=== PATIENT | male | born 1940 | race Caucasian/White ===

== ENCOUNTER → 2021-11-26 | Outpatient (CLI) | payer MEDICARE, OTHER ==
--- NOTE | 2021-11-26 17:03 | CT ---
EXAMINATION TYPE: CT angio abdomen pelvis DATE OF EXAM: 11/26/2021 COMPARISON: NONE HISTORY: 81-year-old male I77.9, Mesenteric Ischemia, history of stents. History of bowel resection. TECHNIQUE: Contiguous axial scanning of the abdomen and pelvis before and after administration of 100 ml Isovue-370 IV contrast. Coronal and sagittal MIP reconstructions performed. 3-D reconstructions generated on a dedicated workstation. The patient was premedicated for IV contrast. CT DLP: 1383 mGycm Automated exposure control for dose reduction was used. FINDINGS: Heart is borderline enlarged. RCA coronary artery calcifications are present. No pericardial effusion . Patchy reticular posterior and basilar opacities in the lungs. Left-sided fat-containing Bochdalek hernia. There is a large hiatal hernia involving most of the stomach in the lower chest. Some nonobstructed s mall bowel loops also traverse into the hernia sac and are located in the left lower chest. Suspected 6.0 cm diverticulum of the second portion of the duodenum. Redundant first and second porti ons of the duodenum. Noncontrast and early arterial phase imaging of the liver, adrenal glands, kidneys, spleen, and pancr eas show no gross abnormality. Gallbladder is surgically absent. No dilated small bowel, free fluid, or free air. No mesenteric or retroperitoneal lymphadenopathy. Moderate atherosclerotic calcifications throughout the abdominal aorta. 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 A stent is present at the origin of the SMA. Thin axial and sagittal cuts suggest severe stenosis wit hin the stent. Stent at the proximal right renal artery. Moderate atherosclerotic narrowing suggested at the ostia. Additional mild to moderate atherosclerotic narrowing at the origin of the left renal artery. Severe stenosis at the origin of the ERIK. No evidence for aneurysm. High riding cecum. Mild overall stool burden. Left-sided colonic diverticulosis, greatest in the sigm oid colon. No pericolonic inflammatory change. Mildly redundant sigmoid colon. Bladder urine distended. Prostate gland not enlarged. Scattered pelvic phleboliths and vascular calci fications. No abnormal fluid collection in the pelvis or pelvic lymphadenopathy. Prominent air and stool distention of the rectum up to 8.9 cm wide. No abnormal wall thickening is se en. Bones: Osteopenia. Couple sclerotic foci within the iliac bones could represent bone islands. Degener ative change of the right SI joint. Severe hypertrophic facet arthropathy mid to lower lumbar spine. Grade 1 anterolisthesis L5-S1. Minimal superior endplate deformity of L1 is age indeterminate, suspect chronic given the lack of any surrounding soft tissue swelling. IMPRESSION: 1. PREVIOUS STENTING AT THE SMA ORIGIN AND PROXIMAL TO MID RIGHT RENAL ARTERY. THERE APPEARS TO BE SE DARIO STENOSIS ALONG THE SMA STENT AND MODERATE STENOSIS RIGHT RENAL ARTERY. 2. ADDITIONAL SEVERE FOCAL STENOSIS AT THE ORIGIN OF THE CELIAC AXIS AND ALSO AT THE ORIGIN OF THE IM A. 3. MILD TO MODERATE ATHEROSCLEROTIC NARROWING AT THE ORIGIN OF THE LEFT RENAL ARTERY. 4. LARGE HIATAL HERNIA INVOLVING MOST OF THE STOMACH IN THE LOWER CHEST. SOME NONOBSTRUCTED SMALL BOW EL LOOPS ARE ALSO LOCATED IN THE HERNIA SAC. 5. LEFT-SIDED COLONIC DIVERTICULOSIS, GREATEST IN THE SIGMOID COLON. NO FINDINGS OF ACUTE DIVERTICULI TIS. 6. A COUPLE SCLEROTIC FOCI WITHIN THE ILIAC BONES, PROBABLY BONE ISLANDS. CORRELATE WITH PSA VALUES.
== END | disposition home or self-care (01) ==
LOC: RADCTMAIN 10:57
PROVIDERS: ATTEND Surgery
DX: I70.1 Atherosclerosis of renal artery (principal); K55.1 Chronic vascular disorders of intestine; I77.4 Celiac artery compression syndrome; K57.30 Diverticulosis of large intestine without perforation or abscess without bleeding; K44.9 Diaphragmatic hernia without obstruction or gangrene
CPT/HCPCS: 74174; 82565; 84520

== ENCOUNTER 2025-01-25 10:22 | Emergency (ER) | payer MEDICARE, OTHER ==
--- NOTE | 2025-01-25 11:14 | ED ---
General Adult HPI - General Chief complaint: Fall Stated complaint: fall Time Seen by Provider: 01/25/25 10:39 Source: patient, family, RN notes reviewed Mode of arrival: wheelchair Limitations: no limitations - History of Present Illness Initial comments: 85-year-old male presents to the emergency department for evaluation of fall with low back and buttock pain. Patient states that he fell on . He states that he went to hold onto the railing of the deck when he missed the railing causing him to fall backwards onto his buttocks. He does not believe that he hit his head. He is on Plavix. Patient reports that over the past 4 to 5 days he has had black stools. He states that he has had 1 daily. He also notes that he is extremely weak. He states that he is unable to take 2-3 steps because he feels so weak. He does admit to significant shortness of breath. Denies any recent fever. He does not report having any of the symptoms prior to the fall. - Related Data Home Medications Medication Instructions Recorded Confirmed Atorvastatin [Lipitor] 40 mg PO DAILY 01/25/25 01/25/25 Cholecalciferol (Vitamin D3) 50 mcg PO DAILY 01/25/25 01/25/25 [Vitamin D3 (50 Mcg = 2000 Iu)] Clopidogrel [Plavix] 75 mg PO DAILY 01/25/25 01/25/25 Cyanocobalamin (Vitamin B-12) 1,000 mcg PO DAILY 01/25/25 01/25/25 [Vitamin B-12] Escitalopram [Lexapro] 10 mg PO HS 01/25/25 01/25/25 Ferrous Sulfate [Feosol] 325 mg PO DAILY 01/25/25 01/25/25 Folic Acid 1 mg PO DAILY 01/25/25 01/25/25 Levothyroxine Sodium [Synthroid] 75 mcg PO DAILY 01/25/25 01/25/25 Metoprolol Tartrate [Lopressor] 12.5 mg PO BID 01/25/25 01/25/25 NIFEdipine XL [Procardia Xl] 30 mg PO DAILY 01/25/25 01/25/25 Pantoprazole [Protonix] 40 mg PO DAILY 01/25/25 01/25/25 Pramipexole [Mirapex] 0.5 mg PO BID 01/25/25 01/25/25 Warfarin Sodium 4 mg PO HS 01/25/25 01/25/25 modafiniL [Provigil] 200 mg PO DAILY 01/25/25 01/25/25 Allergies Allergy/AdvReac Type Severity Reaction Status Date / Time iodine Allergy Rash/Hives Verified 01/25/25 13:31 Review of Systems ROS Statement: Those systems with pertinent positive or pertinent negative responses have been documented in the HPI. ROS Other: All systems not noted in ROS Statement are negative. Past Medical History Past Medical History: Heart Failure Past Surgical History: Heart Catheterization With Stent Smoking Status: Never smoker Past Alcohol Use History: None Reported Past Drug Use History: None Reported General Exam Limitations: no limitations General appearance: alert, in no apparent distress, other (pallorous) Head exam: Present: atraumatic, normocephalic, normal inspection Eye exam: Present: normal appearance, PERRL, EOMI, other (Subconjunctival pallor). Absent: scleral icterus, conjunctival injection, periorbital swelling ENT exam: Present: mucous membranes dry Neck exam: Present: normal inspection, full ROM. Absent: tenderness, men ingismus, lymphadenopathy Respiratory exam: Present: normal lung sounds bilaterally. Absent: respiratory distress, wheezes, rales, rhonchi, stridor Cardiovascular Exam: Present: regular rate, normal rhythm, normal heart sounds. Absent: systolic murmur, diastolic murmur, rubs, gallop, clicks GI/Abdominal exam: Present: soft, normal bowel sounds. Absent: distended, tenderness, guarding, rebound, rigid Rectal exam: Present: heme (+) stool, black stool Extremities exam: Present: normal inspection, full ROM, normal capillary refill. Absent: tenderness, pedal edema, joint swelling, calf tenderness Neurological exam: Present: alert, oriented X3 Psychiatric exam: Present: normal affect, normal mood Skin exam: Present: dry, intact, pallor Course Vital Signs 01/25/25 01/25/25 01/25/25 10:28 13:17 14:07 Temperature 97.3 F L 97.5 F L Pulse Rate 64 96 84 Respiratory 18 22 20 Rate Blood Pressure 124/71 130/55 123/55 O2 Sat by Pulse 95 100 Oximetry 01/25/25 14:18 Temperature 97.5 F L Pulse Rate 87 Respiratory 20 Rate Blood Pressure 135/58 O2 Sat by Pulse 100 Oximetry Medical Decision Making - Medical Decision Making Was pt. sent in by a medical professional or institution (GÉNESIS Patel, CHIEF PHYSICAL THERAPIST, urgent care, hospital, or longterm...) When possible be specific @ -No Did you speak to anyone other than the patient for history (EMS, parent, family, police, friend...)? What history was obtained from this source @ -Patient's daughter and son provided some history of this patient Did you review nursing and triage notes (agree or disagree)? Why? @ -I reviewed and agree with nursing and triage notes Were old charts reviewed (outside hosp., previous admission, EMS record, old EKG, old radiological studies, urgent care reports/EKG's, longterm records)? Report findings @ -No old charts were reviewed Differential Diagnosis (chest pain, altered mental status, abdominal pain women, abdominal pain men, vaginal bleeding, weakness, fever, dyspnea, syncope, headache, dizziness, GI bleed, back pain, seizure, CVA, palpatations, mental health, musculoskeletal)? @ -Differential Weakness: Hypoglycemia, shock, sepsis, hyponatremia, anemia, infection, OH, ETOH, adverse medicine reaction, overdose, stroke, this is not meant to be an all-inclusive list. EKG interpreted by me (3pts min.). @ -EKG [id number] shows sinus rhythm rate 61, SD 189, QRS 101, QTQTc [id number] X-rays interpreted by me (1pt min.). @ -None done CT interpreted by me (1pt min.). @ -CT of the brain and C-spine shows CT angio of the chest and abdomen reveals U/S interpreted by me (1pt. min.). @ -None done What testing was considered but not performed or refused? (CT, X-rays, U/S, labs)? Why? @ -None What meds were considered but not given or refused? Why? @ -None Did you discuss the management of the patient with other professionals (professionals i.e. GÉNESIS Patel, CHIEF PHYSICAL THERAPIST, lab, RT, psych nurse, oncology social work, pottery machine operator, teacher, financial services officer, vocational case manager)? Give summary @ -Management discussed with Dr. Montes Case discussed with [facility] who is accepting of the transfer Was smoking cessation discussed for >3mins.? @ -No Was critical care preformed (if so, how long)? @ -Yes 37 minutes Were there social determinants of health that impacted care today? How? (Homelessness, low income, unemployed, alcoholism, drug addiction, trans portation, low edu. Level, literacy, decrease access to med. care, care home, rehab)? @ -No Was there de-escalation of care discussed even if they declined (Discuss DNR or withdrawal of care, Hospice)? DNR status @ -No What co-morbidities impacted this encounter? (DM, HTN, Smoking, COPD, CAD, Cancer, CVA, ARF, Chemo, Hep., AIDS, mental health diagnosis, sleep apnea, morbid obesity)? @ -None Was patient admitted / discharged? Hospital course, mention meds given and route, prescriptions, significant lab abnormalities, going to OR and other pertinent info. @ -Transfer. Patient presented the emergency department for evaluation of fall with low back pain. Vital signs are stable. Patient reports that he has noted some black stools at home. He notes that he has had about 1 black stool daily for the past 4 to 5 days. He thought that this may be related to the fall. He states that since then he has felt extremely weak. On my examination the patient has ecchymosis to the posterior right leg. The patient has dark stool. Hemoccult was performed which was positive. Laboratory studies were performed. He has a hemoglobin of 5.1, hematocrit 15.5, MCV 100.2. Coagulation studies are pending. CMP shows BUN of 43, creatinine of 1.75. Hemoccult positive. The patient was administered premedication for CT scan.This included Solu-Medrol, Pepcid, Benadryl. He also received 80 mg of Protonix, 1 g of Rocephin for empiric treatment of GI bleed. Blood transfusion was ordered. Patient received a total of 1 L of normal saline. Coagulation studies resulted following this which showed an INR greater than 10. There was an remembrance that the patient recently started Coumadin. He was administered Balfaxar and vitamin K. Dr. Moreno at [facility] Was accepting of the transfer. Blood hanging at the time of transfer. Case was discussed with Dr. Valencia Undiagnosed new problem with uncertain prognosis? @ -GI bleed Drug Therapy requiring intensive monitoring for toxicity (Heparin, Nitro, Insulin, Cardizem)? @ -No Were any procedures done? @ -No Diagnosis/symptom? @ -GI bleed, anemia Acute, or Chronic, or Acute on Chronic? @ -Acute Uncomplicated (without systemic symptoms) or Complicated (systemic symptoms)? @ -Complicated Side effects of treatment? @ -Yes Coumadin Exacerbation, Progression, or Severe Exacerbation? @ -No Poses a threat to life or bodily function? How? (Chest pain, USA, OH, pneumonia, PE, COPD, DKA, ARF, appy, cholecystitis, CVA, Diverticulitis, Homicidal, Suicidal, threat to staff... and all critical care pts) @ -Yes severe - Lab Data Result diagrams: 01/25/25 11:36 01/25/25 11:36 Lab Results 01/25/25 01/25/25 01/25/25 Range/Units 11:34 11:36 11:36 WBC 11.6 H (3.8-10.6) k/uL RBC 1.55 L (4.30-5.90) m/uL Hgb 5.1 L* (13.0-17.5) gm/dL Hct 15.5 L* (39.0-53.0) % MCV 100.2 H (80.0-100.0) fL MCH 32.6 (25.0-35.0) pg MCHC 32.5 (31.0-37.0) g/dL RDW 18.3 H (11.5-15.5) % Plt Count 252 (150-450) k/uL MPV 8.0 Neutrophils % (Manual) 83 % Lymphocytes % (Manual) 9 % Monocytes % (Manual) 4 % Eosinophils % (Manual) 2 % Metamyelocytes % 2 % Myelocytes % 2 % Neutrophils # (Manual) 9.63 H (1.3-7.7) k/uL Lymphocytes # (Manual) 1.04 (1.0-4.8) k/uL Monocytes # (Manual) 0.46 (0-1.0) k/uL Eosinophils # (Manual) 0.23 (0-0.7) k/uL Metamyelocytes # (Man) 0.23 H (0) k/uL Myelocytes # (Manual) 0.23 H (0) k/uL Nucleated RBCs 1 H (0-0) /100 WBC Manual Slide Review Performed Hypochromasia Moderate Poikilocytosis Slight Anisocytosis Slight Macrocytosis Slight PT (10.0-12.5) sec INR (<1.2) APTT (22.0-30.0) sec Sodium 139 (137-145) mmol/L Potassium 4.1 (3.5-5.1) mmol/L Chloride 110 H (98-107) mmol/L Carbon Dioxide 21 L (22-30) mmol/L Anion Gap 8 mmol/L BUN 43 H (9-20) mg/dL Creatinine 1.75 H (0.66-1.25) mg/dL Est GFR (CKD-EPI)AfAm 41 (>60 ml/min/1.73 sqM) Est GFR (CKD-EPI)NonAf 35 (>60 ml/min/1.73 sqM) Glucose 123 H (74-99) mg/dL Plasma Lactic Acid Isai (0.7-2.0) mmol/L Calcium 8.5 (8.4-10.2) mg/dL Total Bilirubin 2.5 H (0.2-1.3) mg/dL AST 54 (17-59) U/L ALT 22 (4-49) U/L Alkaline Phosphatase 89 (38-126) U/L Total Protein 6.0 L (6.3-8.2) g/dL Albumin 3.3 L (3.5-5.0) g/dL Stool Occult Blood (Negative) Blood Type Blood Type Confirm O Negative Blood Type Recheck Bld Type Recheck Status Antibody Screen Crossmatch Spec Expiration Date 01/25/25 01/25/25 01/25/25 Range/Units 11:36 11:36 12:28 WBC (3.8-10.6) k/uL RBC (4.30-5.90) m/uL Hgb (13.0-17.5) gm/dL Hct (39.0-53.0) % MCV (80.0-100.0) fL MCH (25.0-35.0) pg MCHC (31.0-37.0) g/dL RDW (11.5-15.5) % Plt Count (150-450) k/uL MPV Neutrophils % (Manual) % Lymphocytes % (Manual) % Monocytes % (Manual) % Eosinophils % (Manual) % Metamyelocytes % % Myelocytes % % Neutrophils # (Manual) (1.3-7.7) k/uL Lymphocytes # (Manual) (1.0-4.8) k/uL Monocytes # (Manual) (0-1.0) k/uL Eosinophils # (Manual) (0-0.7) k/uL Metamyelocytes # (Man) (0) k/uL Myelocytes # (Manual) (0) k/uL Nucleated RBCs (0-0) /100 WBC Manual Slide Review Hypochromasia Poikilocytosis Anisocytosis Macrocytosis PT (10.0-12.5) sec INR (<1.2) APTT (22.0-30.0) sec Sodium (137-145) mmol/L Potassium (3.5-5.1) mmol/L Chloride (98-107) mmol/L Carbon Dioxide (22-30) mmol/L Anion Gap mmol/L BUN (9-20) mg/dL Creatinine (0.66-1.25) mg/dL Est GFR (CKD-EPI)AfAm (>60 ml/min/1.73 sqM) Est GFR (CKD-EPI)NonAf (>60 ml/min/1.73 sqM) Glucose (74-99) mg/dL Plasma Lactic Acid Isai 1.3 (0.7-2.0) mmol/L Calcium (8.4-10.2) mg/dL Total Bilirubin (0.2-1.3) mg/dL AST (17-59) U/L ALT (4-49) U/L Alkaline Phosphatase (38-126) U/L Total Protein (6.3-8.2) g/dL Albumin (3.5-5.0) g/dL Stool Occult Blood Positive (Negative) Blood Type O Negative Blood Type Confirm Blood Type Recheck No Previous Record Bld Type Recheck Status CABO Indicated Antibody Screen NEGATIVE Crossmatch See Detail Spec Expiration Date 01/28/2025 - 233501/25/25 Range/Units 12:28 WBC (3.8-10.6) k/uL RBC (4.30-5.90) m/uL Hgb (13.0-17.5) gm/dL Hct (39.0-53.0) % MCV (80.0-100.0) fL MCH (25.0-35.0) pg MCHC (31.0-37.0) g/dL RDW (11.5-15.5) % Plt Count (150-450) k/uL MPV Neutrophils % (Manual) % Lymphocytes % (Manual) % Monocytes % (Manual) % Eosinophils % (Manual) % Metamyelocytes % % Myelocytes % % Neutrophils # (Manual) (1.3-7.7) k/uL Lymphocytes # (Manual) (1.0-4.8) k/uL Monocytes # (Manual) (0-1.0) k/uL Eosinophils # (Manual) (0-0.7) k/uL Metamyelocytes # (Man) (0) k/uL Myelocytes # (Manual) (0) k/uL Nucleated RBCs (0-0) /100 WBC Manual Slide Review Hypochromasia Poikilocytosis Anisocytosis Macrocytosis PT >130.0 H (10.0-12.5) sec INR >10.0 H* (<1.2) APTT 123.0 H* (22.0-30.0) sec Sodium (137-145) mmol/L Potassium (3.5-5.1) mmol/L Chloride (98-107) mmol/L Carbon Dioxide (22-30) mmol/L Anion Gap mmol/L BUN (9-20) mg/dL Creatinine (0.66-1.25) mg/dL Est GFR (CKD-EPI)AfAm (>60 ml/min/1.73 sqM) Est GFR (CKD-EPI)NonAf (>60 ml/min/1.73 sqM) Glucose (74-99) mg/dL Plasma Lactic Acid Isai (0.7-2.0) mmol/L Calcium (8.4-10.2) mg/dL Total Bilirubin (0.2-1.3) mg/dL AST (17-59) U/L ALT (4-49) U/L Alkaline Phosphatase (38-126) U/L Total Protein (6.3-8.2) g/dL Albumin (3.5-5.0) g/dL Stool Occult Blood (Negative) Blood Type Blood Type Confirm Blood Type Recheck Bld Type Recheck Status Antibody Screen Crossmatch Spec Expiration Date Critical Care Time Critical Care Time: Yes Total Critical Care Time: 37 Disposition Clinical Impression: GI bleed, Anemia Disposition: OTHER INSTITUTION NOT DEFINED Condition: Stable Is patient prescribed a controlled substance at d/c from ED?: No Referrals: Nonstaff,Physician [REFERRING] - 1-2 days Time of Disposition: 13:26 - Out of Hospital Transfer - Req. Specs Out of Hospital Transfer - Requested Specifics: Other Emergency Center ([facility])
[2025-01-25] MEDS ORDERED: RX INFO: IV CONTRAST WAS GIVEN 1 EACH MISC MISCELLANE PRN (11:24)
[2025-01-25] MEDS: SODIUM CHLORIDE 0.9% 500 ML 500 ML IV ONE ×2 (11:47→13:38)
[2025-01-25 11:55] LABS: Anisocytosis Slight; Hypochromasia Moderate; MCH 32.6 pg (25.0-35.0); MCHC 32.5 g/dL (31.0-37.0); MCV 100.2 fL (80.0-100.0); Macrocytosis Slight; Platelet Count 252 k/uL (150-450); Poikilocytosis Slight; RBC 1.55 m/uL (4.30-5.90); RDW 18.3 % (11.5-15.5)
[2025-01-25 12:01] LABS: ALT 22 U/L (4-49); AST 54 U/L (17-59); African American GFR (CKD) 41 (>60 ml/min/1.73 sqM); Albumin 3.3 g/dL (3.5-5.0); Alkaline Phosphatase 89 U/L (38-126); Anion Gap 8 mmol/L; Blood Urea Nitrogen 43 mg/dL (9-20); Calcium 8.5 mg/dL (8.4-10.2); Carbon Dioxide 21 mmol/L (22-30); Chloride 110 mmol/L (98-107); Glucose 123 mg/dL (74-99); Non-African American GFR(CKD) 35 (>60 ml/min/1.73 sqM); Potassium 4.1 mmol/L (3.5-5.1); Sodium 139 mmol/L (137-145); Total Bilirubin 2.5 mg/dL (0.2-1.3)
[2025-01-25 12:10] LABS: HCT 15.5 % (39.0-53.0); HGB 5.1 gm/dL (13.0-17.5)
[2025-01-25] MEDS: diphenhydrAMINE 50 MG/ML 1 ML VIAL IVP STA (12:28)
[2025-01-25] MEDS: PANTOPRAZOLE 40 MG/10 ML VIAL IVP ONE (12:29)
[2025-01-25] MEDS: cefTRIAXone IN SWFI 1,000 MG/10 ML SYRINGE IVP STA (12:29)
[2025-01-25] MEDS: FAMOTIDINE 20 MG/2 ML VIAL IV STA (12:29)
[2025-01-25] MEDS: methylPREDNISolone SOD SUCCI 125 MG/2 ML VIAL IV STA (12:29)
[2025-01-25 13:05] LABS: Eosinophils # (M) 0.23 k/uL (0-0.7); Lymphocytes # (M) 1.04 k/uL (1.0-4.8); Metamyelocytes # (M) 0.23 k/uL (0); Metamyelocytes % 2 %; Monocytes # (M) 0.46 k/uL (0-1.0); Myelocytes # (M) 0.23 k/uL (0); Myelocytes % 2 %; Neutrophils # (M) 9.63 k/uL (1.3-7.7); Neutrophils % (M) 83 %; Nucleated Red Blood Cells 1 /100 WBC (0-0); Total Cells Counted 200; WBC 11.6 k/uL (3.8-10.6)
[2025-01-25] MEDS: TRANEXAMIC 1,000 MG/100ML-NACL 1,000 MG in SALINE 1 100ML.BAG IV STA (13:25)
[2025-01-25 13:26] LABS: Prothrombin Time >130.0 sec (10.0-12.5)
[2025-01-25 13:27] LABS: INR >10.0 (<1.2)
[2025-01-25] MEDS ORDERED: Kcentra / Balfaxar PER PHARMACY 1 EACH MISC MISCELLANE PRN (13:29)
--- NOTE | 2025-01-25 13:37 | CT ---
EXAMINATION TYPE: CT brain ewa johnson DATE OF EXAM: 01/25/2025 COMPARISON: None CLINICAL INDICATION: Male, 85 years old with history of fall; PHH, Fall TECHNIQUE: CT scan of the head and cervical spine are performed without contrast. CT DLP: 1468.[address] CTDI: mGy Automated exposure control for dose reduction was used. Findings: Head CT: The ventricles, basal cisterns and sulci of the convexities are moderately to markedly enlarged consi stent with moderate to marked atrophy. There is a 15 mm lacunar infarct in the right caudate nucleus. There is moderate decreased density in the periventricular white matter consistent with moderate svp research and strategic analysis renato ischemic white matter demyelination. There is no mass effect or shift of midline structures. There is no acute intra or extra-axial hemorrhage. Posterior fossa including the brainstem, fourth ventricle and cerebellar pontine angles are grossly n ormal. The intraorbital contents appear normal and symmetric. Visualized paranasal sinuses are well aerated. The calvarium is intact. CT cervical spine: Craniovertebral junction relationships and prevertebral soft tissues are normal. The cervical vertebral segments are normal in height and alignment and there is no fracture subluxati on. There is mild degenerative disc disease at the C4-5 and C5-6 level and moderate to marked degenerativ e disease at the C6-7 level. There is moderate facet and uncovertebral joint arthropathy in the mid l ower cervical spine The bony cervical canal is widely patent. There is multilevel neural foraminal encroachment as follows; severe at the C3-C4 level on the right, moderate at the C4-5 level on the left, and mild at C6-7 on the left. The paraspinal soft tissues unremarkable. IMPRESSION: 1. Head CT: No acute bleed or mass effect. Moderate to marked atrophy and ischemic white matter kat es. Remote lacunar infarct right caudate nucleus. 2. CT cervical spine: No acute trauma. Degenerative disease and arthritis as described above. . [facility], , 01/25/2025 1:35 PM
--- NOTE | 2025-01-25 13:54 | CT ---
CTA thorax, abdomen and pelvis. HISTORY: Fall and dark stools. COMPARISON: CTA abdomen and pelvis dated 12/08/2024. TECHNIQUE: Multiple axial images were obtained to the chest, abdomen and pelvis before and after the uneventful administration of nonionic IV contrast. Exam was performed according to department CTA pro tocol. FINDINGS: CTA CHEST: There is no aneurysm or dissection of the thoracic aorta. There is no mediastinal, hilar or axillary adenopathy. There is a focal area of interstitial and groundglass density in the right lower lobe. There is mild left lower lobe atelectasis. There is an intrathoracic stomach. There is moderate cardiomegaly. There is no pleural effusion or pneumothorax. There are scattered pleural calcifications raising the question of prior asbestos exposure. There is no suspicious lung mass. The osseous structures are intact CTA abdomen and pelvis: The caliber of the abdominal aorta is normal with no aneurysm or dissection. There is marked arterial vascular calcification of the aorta and iliac vessels. There is a patent stent in the superior mesen teric artery and in the right renal artery There is no solid renal mass or hydronephrosis. There is no renal calcification. No retroperitoneal a denopathy or hemorrhage. There is no focal mass or organomegaly involving the liver, pancreas, spleen or adrenal glands. The bowel loops are normal in caliber and there is no dilatation or obstruction. There is marked dive rticulosis of the colon without CT evidence of acute diverticulitis. There is been interval developme nt of normal complex fluid and inflammatory change in the presacral soft tissues raising the question of inflammatory process or hemorrhage there is questionable thickening of the posterior wall of the rectum. IMPRESSION: 1. No aneurysm or dissection of the thoracic or abdominal aorta. 2. Patent superior mesenteric artery and right renal stents. 3. Intrathoracic stomach. 4. Moderate cardiomegaly. 5. Pleural calcifications raising the question of asbestos exposure. 6. Bibasilar atelectasis and chronic interstitial changes. 7. Complex fluid/hemorrhage or inflammatory process in the presacral region possibly related to the p osterior wall of the rectum [facility], , 01/25/2025 1:51 PM
[2025-01-25 14:08] VITALS: RESP 20; TEMP 97.5
[2025-01-25] MEDS: PHYTONADIONE 10 MG in SODIUM CHLORIDE 0.9% 50 ML IVPB STA (14:18)
[2025-01-25 14:21] VITALS: BP 135/58; PULSE 87
== END 2025-01-25 14:28 | disposition other institution (70) ==
LOC: EC 10:22
DX: K92.2 Gastrointestinal hemorrhage, unspecified (principal); D64.9 Anemia, unspecified; Z91.041 Radiographic dye allergy status; W19.XXXA Unspecified fall, initial encounter
CPT/HCPCS: 99285; 36430; 96365; 96375; 96361; 36415; 93005; 86900; 86901; 80053; 83605; 85025; 85610; 85730; 86850; 86920; 82272; 87040; 72125; 70450; 71275; 74174; P9016; J3430; J1200; J0696; J3490; Q9967; J2919; J2470; J7165